=== PATIENT | female | born 2000 | race Two or more races ===

== ENCOUNTER 2024-07-22 17:52 | Inpatient (IN) | payer OTHER ==
[~2024-07-22] VITALS: Ht 157.5 cm; Wt 67.3 kg
[2024-07-22 18:59] LABS: BASOPHILS % (AUTO) 0.7 % (0.0-2.0); EOSINOPHILS % (AUTO) 0.1 % (1.0-6.0); HEMATOCRIT 42.8 % (36-46); HEMOGLOBIN 14.5 g/dL (12.0-16.0); LYMPHOCYTES # (AUTO) 0.6 K/uL (1.0-4.8); MEAN CORPUSCULAR HGB CONC 33.9 G/dL (31.0-37.0); MEAN CORPUSCULAR VOLUME 104 fL (80-100); MONOCYTES # (AUTO) 0.5 K/uL (0.1-1.0); MONOCYTES % (AUTO) 5.8 % (2.0-9.0); NEUTROPHILS # (AUTO) 7.8 K/uL (1.8-7.7); PLATELET COUNT (AUTO) 250 K/uL (150-450); RED BLOOD CELL COUNT(AUTO) 4.14 MIL/uL (4.00-5.20)
[2024-07-22 19:05] LABS: NEUTROPHILS % (AUTO) 86.4 % (40.0-70.0)
[2024-07-22 19:12] LABS: APPEARANCE,URINE CLEAR (CLEAR); BILIRUBIN,URINE NEGATIVE (NEGATIVE); COLOR,URINE YELLOW (YELLOW); GLUCOSE, URINE (UA) NEGATIVE (NEGATIVE); KETONES,URINE =>150 mg/dL (NEGATIVE); LEUKOCYTE ESTERASE ,URINE NEGATIVE (NEGATIVE); NITRATE,URINE NEGATIVE (NEGATIVE); OCCULT BLOOD,URINE NEGATIVE (NEGATIVE); PROTEIN,URINE 100-200,SEE CONFIRM mg/dL (NEGATIVE); SPECIFIC GRAVITIY, URINE 1.026 (1.003-1.030)
[2024-07-22 19:18] LABS: TROPONIN I-HIGH SENSITIVITY 5 ng/L (<51)
[2024-07-22 19:31] LABS: B-TYPE NATRIURETIC PEPTIDE 28 pg/mL (0-100)
[2024-07-22 19:35] LABS: ALANINE AMINOTRANSFERASE 256 U/L (12-78); ALBUMIN 3.8 g/dL (3.4-5.0); ALKALINE PHOSPHATASE 194 U/L (46-116); ANION GAP 20 mmol/L (8-16); ASPARTATE AMINOTRANSFERASE 883 U/L (15-37); CALCIUM, TOTAL 9.3 mg/dL (8.8-10.5); CARBON DIOXIDE 22 mmol/L (22-29); CHLORIDE 99 mmol/L (98-107); CREATINE KINASE, TOTAL ONLY 81 U/L (26-192); CREATININE 0.83 mg/dL (0.60-1.30); GLOMERULAR FILTR. RATE CALC > 60 mL/min (>60); GLUCOSE,RANDOM 110 mg/dL (70-110); RBC MORPHOLOGY COMMENT ABNORMAL RBC MORPH; SODIUM SERUM 141 mmol/L (136-145); TOTAL PROTEIN, SERUM 7.1 g/dL (6.4-8.2); UREA NITROGEN, BLOOD 6 mg/dL (7-18)
[2024-07-22 19:38] LABS: POTASSIUM 2.5 mmol/L (3.5-5.1)
[2024-07-22 19:38] LABS: SULFOSALICYLIC ACID,URINE 1+ (Negative)
[2024-07-22 19:40] LABS: BACTERIA,URINE Few /HPF (None Seen); RBC,URINE 0-2 /HPF (0-2); SQUAMOUS EPITHELIAL CELL,UR Moderate /LPF (None Seen); WBC,URINE 0-2 /HPF (0-5)
[2024-07-22] MEDS ORDERED: MAGNESIUM OXIDE 400 MG TABLET PO PRN (20:00)
[2024-07-22] MEDS ORDERED: ONDANSETRON HCL 4 MG/2 ML VIAL IVP PRN (20:00)
[2024-07-22] MEDS ORDERED: MAGNESIUM SULFATE 2 GM/WATER 50 ML IV PRN (20:00)
[2024-07-22] MEDS ORDERED: MAGNESIUM SULFATE 4 GM/WATER 100 ML IV PRN (20:00)
[2024-07-22] MEDS ORDERED: POTASSIUM CHL 10 MEQ/WATER 50 ML IV PRN (20:00)
[2024-07-22] MEDS ORDERED: METOCLOPRAMIDE HCL 5 MG/ML 2 ML VIAL IVP PRN (20:30)
[2024-07-22] MEDS: PB/HYOSCY/ATR/SCOP/LIDO/MAALOX 55 ML BOTTLE PO ONE (20:30)
[2024-07-22] MEDS: MAGNESIUM SULFATE 4 GM/WATER 100 ML IV ONE (20:49)
[2024-07-22] MEDS: SODIUM CHLORIDE 0.9% 1,000 ML IV ONE (20:49)
[2024-07-22] MEDS: POTASSIUM CHL 40 MEQ/D5-0.45NS 1,000 ML IV ONE (20:51)
[2024-07-22] MEDS: ONDANSETRON HCL 4 MG/2 ML VIAL IVP ONE (20:53)
[2024-07-22] MEDS: LORazepam 2 MG/ML VIAL IVP ONE (20:54)
[2024-07-22] MEDS: DOCUSATE SODIUM 100 MG CAPSULE PO SCH (21:00)
[2024-07-22] MEDS ORDERED: LORazepam 2 MG/ML VIAL IVP PRN (21:00)
[2024-07-22] MEDS: LORazepam 2 MG/ML VIAL IVP PRN ×2 (21:11→21:12)
[2024-07-22] MEDS: POTASSIUM CHLORIDE 20 MEQ ER TABLET PO ONE (23:08)
[2024-07-22] MEDS: 1: MAGNESIUM SULFATE 2 GM, MVI, ADULT NO.1 WITH VIT K 10 ML, THIAMINE 100 MG, FOLIC ACID IV SCH (23:24)
[2024-07-23] MEDS: HEPARIN SODIUM,PORCINE 5,000 UNITS/ML VIAL SQ SCH
[2024-07-23 00:05] VITALS: BP 132/79; PULSE 78; RESP 18; TEMP 98.3; O2SAT 97
[2024-07-23 04:00] VITALS: BP 136/90; PULSE 80; RESP 18; TEMP 98.4; O2SAT 99
[2024-07-23 06:25] LABS: BASOPHILS % (AUTO) 0.6 % (0.0-2.0); EOSINOPHILS % (AUTO) 0.2 % (1.0-6.0); HEMATOCRIT 38.6 % (36-46); HEMOGLOBIN 13.2 g/dL (12.0-16.0); LYMPHOCYTES # (AUTO) 1.8 K/uL (1.0-4.8); LYMPHOCYTES % (AUTO) 23.4 % (22.0-44.0); MEAN CORPUSCULAR HEMOGLOBIN 35.6 pg (26.0-34.0); MEAN CORPUSCULAR HGB CONC 34.2 G/dL (31.0-37.0); MEAN CORPUSCULAR VOLUME 104 fL (80-100); MONOCYTES # (AUTO) 0.7 K/uL (0.1-1.0); MONOCYTES % (AUTO) 9.4 % (2.0-9.0); NEUTROPHILS # (AUTO) 5.2 K/uL (1.8-7.7); NEUTROPHILS % (AUTO) 66.4 % (40.0-70.0); RED BLOOD CELL COUNT(AUTO) 3.71 MIL/uL (4.00-5.20); RED CELL DISTRIBUTION WIDTH 14.9 % (11.5-14.5); WHITE BLOOD COUNT (AUTO) 7.8 K/uL (4.5-11.0)
[2024-07-23 06:52] LABS: ANION GAP 13 mmol/L (8-16); CALCIUM, TOTAL 8.3 mg/dL (8.8-10.5); CARBON DIOXIDE 22 mmol/L (22-29); CHLORIDE 105 mmol/L (98-107); GLOMERULAR FILTR. RATE CALC > 60 mL/min (>60); GLUCOSE,RANDOM 84 mg/dL (70-110); POTASSIUM 3.6 mmol/L (3.5-5.1); SODIUM SERUM 140 mmol/L (136-145); UREA NITROGEN, BLOOD 5 mg/dL (7-18)
[2024-07-23 07:32] LABS: PLATELET COUNT (AUTO) 187 K/uL (150-450)
[2024-07-23 08:15] VITALS: BP 141/97; PULSE 80; RESP 18; TEMP 98.5; O2SAT 99
[2024-07-23] MEDS ORDERED: SODIUM CHLORIDE 0.9% 1,000 ML ONE (08:42)
[2024-07-23 11:07] LABS: CREATINE KINASE, TOTAL ONLY 197 U/L (26-192)
[2024-07-23 12:00] VITALS: BP 140/100; PULSE 73; RESP 16; TEMP 98.1; O2SAT 98
[2024-07-23 15:09] VITALS: BP 143/102; PULSE 74; RESP 18; TEMP 98.6; O2SAT 99
[2024-07-23 18:21] LABS: APPEARANCE,URINE CLEAR (CLEAR); BILIRUBIN,URINE NEGATIVE (NEGATIVE); COLOR,URINE COLORLESS (YELLOW); GLUCOSE, URINE (UA) NEGATIVE (NEGATIVE); KETONES,URINE NEGATIVE (NEGATIVE); LEUKOCYTE ESTERASE ,URINE NEGATIVE (NEGATIVE); NITRATE,URINE NEGATIVE (NEGATIVE); OCCULT BLOOD,URINE NEGATIVE (NEGATIVE); PH,URINE 7.5 (5.0-8.0); PROTEIN,URINE NEGATIVE (NEGATIVE); SPECIFIC GRAVITIY, URINE 1.005 (1.003-1.030); UROBILINOGEN,URINE <=1.0 mg/dL (<=1.0)
[2024-07-23 18:23] LABS: HCG,QUAL URINE NEGATIVE (NEGATIVE)
[2024-07-23 18:28] LABS: ALCOHOL, URINE DRUG SCREEN NEGATIVE (NEGATIVE); AMPHET/METH SCREEN,URINE NEGATIVE (NEGATIVE); BARBITURATE SCREEN, URINE NEGATIVE (NEGATIVE); BENZODIAZEPINES SCREEN,URINE NEGATIVE (NEGATIVE); CANNABINOID SCREEN,URINE POSITIVE (NEGATIVE); COCAINE SCREEN,URINE NEGATIVE (NEGATIVE); METHADONE SCREEN, URINE NEGATIVE (NEGATIVE); OPIATE SCREEN,URINE NEGATIVE (NEGATIVE); PHENCYCLIDINE SCREEN,URINE NEGATIVE (NEGATIVE)
[2024-07-23 18:31] LABS: PH,URINE DRUG SCREEN 7.5 (5.0-8.0)
[2024-07-23 20:00] VITALS: BP 130/78; PULSE 86; RESP 18; TEMP 98.1; O2SAT 96
[2024-07-23] MEDS: ZOLPIDEM TARTRATE 5 MG TABLET PO PRN (23:40)
[2024-07-24] VITALS: BP 132/96; PULSE 73; RESP 18; TEMP 98.4; O2SAT 98
[2024-07-24] MEDS ORDERED: SODIUM CHLORIDE 0.9% 1,000 ML ONE (03:18)
[2024-07-24 04:00] VITALS: BP 123/74; PULSE 72; RESP 18; TEMP 98.3; O2SAT 96
[2024-07-24 07:34] LABS: TROPONIN I-HIGH SENSITIVITY Less Than 4 ng/L (<51)
[2024-07-24 07:38] LABS: ANION GAP 11 mmol/L (8-16); CALCIUM, TOTAL 8.4 mg/dL (8.8-10.5); CARBON DIOXIDE 25 mmol/L (22-29); CHLORIDE 104 mmol/L (98-107); GLOMERULAR FILTR. RATE CALC > 60 mL/min (>60); GLUCOSE,RANDOM 81 mg/dL (70-110); POTASSIUM 3.7 mmol/L (3.5-5.1); SODIUM SERUM 140 mmol/L (136-145); THYROID STIMULATING HORMONE 2.91 uIU/mL (0.36-3.74); UREA NITROGEN, BLOOD 2 mg/dL (7-18)
[2024-07-24 11:00] VITALS: BP 137/91; PULSE 71; RESP 20; TEMP 98.6; O2SAT 98
[2024-07-24] MEDS: DIAZEPAM 5 MG TABLET PO SCH (13:19)
[2024-07-24 15:21] VITALS: BP_SYST 140; BP_SYST 148; BP_DIAS 68; BP_DIAS 94; PULSE 71; PULSE 73; RESP 18; TEMP 97.7; TEMP 98.5; O2SAT 98
[2024-07-24 20:00] VITALS: BP 148/91; PULSE 71; RESP 18; TEMP 97.9; O2SAT 95
[2024-07-25] VITALS: BP 136/93; PULSE 63; RESP 18; TEMP 97.9; O2SAT 97
[2024-07-25] MEDS ORDERED: SODIUM CHLORIDE 0.9% 1,000 ML ONE (00:02)
[2024-07-25 04:00] VITALS: BP 126/74; PULSE 65; RESP 18; TEMP 97.9; O2SAT 97
[2024-07-25 07:58] VITALS: BP 141/78; PULSE 75; RESP 18; TEMP 98; O2SAT 98
[2024-07-25 08:01] LABS: ANION GAP 13 mmol/L (8-16); CALCIUM, TOTAL 8.3 mg/dL (8.8-10.5); CARBON DIOXIDE 22 mmol/L (22-29); CHLORIDE 105 mmol/L (98-107); CREATININE 0.66 mg/dL (0.60-1.30); GLOMERULAR FILTR. RATE CALC > 60 mL/min (>60); GLUCOSE,RANDOM 75 mg/dL (70-110); POTASSIUM 3.4 mmol/L (3.5-5.1); SODIUM SERUM 140 mmol/L (136-145); UREA NITROGEN, BLOOD 6 mg/dL (7-18)
[2024-07-25] MEDS: POTASSIUM CHLORIDE 20 MEQ ER TABLET PO PRN (09:15)
[2024-07-25] MEDS ORDERED: B CO PO (11:51)
[2024-07-25] MEDS ORDERED: THIA100T92 PO (11:51)
[2024-07-25 12:13] VITALS: BP 134/88; PULSE 64; RESP 18; TEMP 98; O2SAT 96
[2024-07-25] MEDS: POTASSIUM CHLORIDE 10% 40 MEQ/30 ML LIQUID UDCUP PO ONE (12:25)
== END 2024-07-25 12:45 | disposition home or self-care (01) | DRG 241 ==
LOC: EMS 17:52 → EDH 20:04 → 5S 07-23 00:09
PROVIDERS: ADMIT Internal Medicine; ATTEND Internal Medicine
DX: K29.20 Alcoholic gastritis without bleeding (principal); K76.0 Fatty (change of) liver, not elsewhere classified; E83.42 Hypomagnesemia; F10.239 Alcohol dependence with withdrawal, unspecified; E87.6 Hypokalemia; F41.9 Anxiety disorder, unspecified; R00.0 Tachycardia, unspecified; E86.0 Dehydration; F32.A Depression, unspecified; F17.210 Nicotine dependence, cigarettes, uncomplicated
CPT/HCPCS: 71045; 76700; 80048; 80053; 80307; 81001; 81002; 81003; 82040; 82550; 83735; 83880; 84132; 84443; 84484; 84703; 85025; 93005; 93306; 99291; G0378; J1644; J2060; J2405; J2765; J3411; J3475; J3480; J3490; J7030; 36415-L1; 36415-TC